=== PATIENT | female | born 1950 | race Caucasian/White ===

== ENCOUNTER 2019-10-08 11:27 | Outpatient (CLI) | payer OTHER ==
[2019-10-08 12:54] LABS: ALANINE AMINOTRANSFERASE 20 U/L (12-78); ALBUMIN 4.1 g/dL (3.4-5.0); ANION GAP 6 mmol/L (5-15); CALCIUM 8.9 mg/dL (8.5-10.1); CHLORIDE 102 mmol/L (98-107)
[2019-10-08 12:56] LABS: ALKALINE PHOSPHATASE 53 U/L (45-117); BILIRUBIN,TOTAL 0.4 mg/dL (0.2-1.0); TOTAL PROTEIN 7.4 g/dL (6.4-8.2)
[2019-10-08] MEDS ORDERED: ATOR10TA PO (13:27)
[2019-10-08] MEDS ORDERED: CITA20TA6 PO (13:27)
[2019-10-08] MEDS ORDERED: PRAS1TAB2 PO (13:27)
[2019-10-08] MEDS ORDERED: INSU100I34 SQ (13:27)
[2019-10-08] MEDS ORDERED: CINN500C2 PO (13:27)
[2019-10-08] MEDS ORDERED: TURM1POW2 PO (13:27)
[2019-10-08] MEDS ORDERED: CYAN-10 PO (13:27)
[2019-10-08] MEDS ORDERED: METF850T10 PO (13:27)
[2019-10-08] MEDS ORDERED: CHOL10003 PO (13:27)
== END 2019-10-08 23:59 | disposition home or self-care (01) ==
LOC: MERGE 11:27 → STAR 11:27
PROVIDERS: ATTEND Obstetrics & Gynecology Female Pelvic Medicine and Reconstructive Surgery
DX: Z01.818 Encounter for other preprocedural examination (principal); R10.2 Pelvic and perineal pain; N39.3 Stress incontinence (female) (male); N81.10 Cystocele, unspecified; N95.0 Postmenopausal bleeding
CPT/HCPCS: 36415; 80053; 93005

== ENCOUNTER 2019-10-12 11:24 | Day surgery (SDC) | payer OTHER ==
[~2019-10-12] VITALS: Ht 162.6 cm; Wt 51.6 kg
[~2019-10-12 11:24] MED LIST: ATOR10TA PO; BUPIVACAINE/PF-EPI 0.25% 1:200K ONE; CHOL10003 PO; CINN500C2 PO; CITA20TA6 PO; CYAN-10 PO; GENTAMICIN 80 MG/2 ML ONE; INSU100I34 SQ; METF850T10 PO; PRAS1TAB2 PO; TURM1POW2 PO; VANCOMYCIN 500 MG ONE
[2019-10-12] MEDS ORDERED: LACTATED RINGERS 1,000 ML IV SCH (11:48)
[2019-10-12] MEDS ORDERED: CHLORHEXIDINE 15 ML UDC MM ONE (12:00)
[2019-10-12] MEDS ORDERED: ACETAMINOPHEN 500 MG TABLET ONE ×2 (14:15→14:16)
[2019-10-12] MEDS ORDERED: FENTANYL PF 250 MCG/5ML ONE (14:22)
[2019-10-12] MEDS ORDERED: LABETALOL 5MG/ML, 20ML IV PRN (15:30)
[2019-10-12] MEDS ORDERED: FENTANYL PF 100 MCG/2ML IV PRN (15:30)
[2019-10-12] MEDS ORDERED: hydrALAzine 20 MG/ML, 1ML IV PRN (15:30)
[2019-10-12] MEDS ORDERED: ALBUTEROL SULFATE 2.5 MG/3 ML NPPB PRN (15:30)
[2019-10-12] MEDS ORDERED: HALOPERIDOL 5 MG/ML IV PRN (15:30)
[2019-10-12] MEDS ORDERED: OXYcodone 5 MG/5 ML ORAL.SOL UDC PO PRN (15:30)
[2019-10-12] MEDS ORDERED: HYDROmorphone 2 MG/ML, 1ML IVPush PRN (15:30)
[2019-10-12] MEDS ORDERED: PROMETHAZINE 25 MG/ML, 1ML IV PRN (15:30)
[2019-10-12] MEDS ORDERED: GLYCOPYRROLATE 0.2MG/1ML, 5ML ONE (16:14)
[2019-10-12] MEDS ORDERED: SUCCINYLCHOLINE 20 MG/ML, 10ML ONE (16:14)
[2019-10-12] MEDS ORDERED: DEXAMETHASONE 4 MG/ML, 1ML ONE (16:14)
[2019-10-12] MEDS ORDERED: ROCURONIUM 10MG/ML,5ML ONE (16:14)
[2019-10-12] MEDS ORDERED: NEOSTIGMINE 1 MG/ML, 10ML ONE (16:14)
[2019-10-12] MEDS ORDERED: SUGAMMADEX 200 MG/2 ML IVPush ONE (16:14)
[2019-10-12] MEDS ORDERED: PROPOFOL 10 MG/ML, 20ML ONE (16:14)
[2019-10-12] MEDS ORDERED: CEFAZOLIN 1,000 MG ONE (16:14)
[2019-10-12] MEDS ORDERED: ONDANSETRON 2MG/ML, 2ML ONE (16:14)
[2019-10-12] MEDS ORDERED: OXYcodone 5 MG/5 ML ORAL.SOL UDC ONE (16:47)
[2019-10-12] MEDS ORDERED: IBUPROFEN 600 MG TABLET PO PRN (18:00)
[2019-10-12] MEDS ORDERED: OXYcodone/APAP 5/325MG TABLET PO PRN (18:00)
[2019-10-12] MEDS ORDERED: KETOROLAC 30 MG/1 ML IV PRN (18:00)
[2019-10-12] MEDS ORDERED: HYDROmorphone 1 MG/ML, 1ML INJ IV PRN (18:00)
[2019-10-12] MEDS ORDERED: HYDROcodone/APAP 5/325 TABLET PO PRN (18:00)
[2019-10-12] MEDS ORDERED: ONDANSETRON 2MG/ML, 2ML IV PRN (18:00)
[2019-10-12 19:28] VITALS: BP 127/81
[2019-10-12] MEDS ORDERED: ATORVASTATIN 10 MG TABLET PO SCH (21:00)
[2019-10-13] MEDS ORDERED: metFORMIN 850 MG TABLET PO SCH (08:00)
[2019-10-13] MEDS ORDERED: CYANOCOBALAMIN 1,000 MCG TABLET PO SCH (09:00)
[2019-10-13] MEDS ORDERED: [UNRECOGNIZED DRUG - OTHER] HOMEMEDPO SCH (09:00)
[2019-10-13] MEDS ORDERED: CHOLECALCIFEROL 1,000 UNIT TABLET PO SCH (09:00)
[2019-10-13] MEDS ORDERED: TUMERIC HOMEMEDPO SCH (09:00)
[2019-10-13] MEDS ORDERED: INSULIN GLARGINE 100 UNITS/ML, PEN SQ-INSULIN SCH (09:00)
[2019-10-13] MEDS ORDERED: CINNAMON BARK HOMEMEDPO SCH (09:00)
== END 2019-10-12 20:30 | disposition home or self-care (01) ==
LOC: OUT 11:24 → 4NE 17:23 → OUT 20:30
PROVIDERS: ATTEND Obstetrics & Gynecology Female Pelvic Medicine and Reconstructive Surgery
DX: N95.0 Postmenopausal bleeding (principal); Z11.59 Encounter for screening for other viral diseases; T83.721A Exposure of implanted vaginal mesh into vagina, initial encounter; N81.4 Uterovaginal prolapse, unspecified; N39.46 Mixed incontinence; N72 Inflammatory disease of cervix uteri; N80.0 Endometriosis of uterus; N94.89 Other specified conditions associated with female genital organs and menstrual cycle; E11.9 Type 2 diabetes mellitus without complications; E78.5 Hyperlipidemia, unspecified; G43.909 Migraine, unspecified, not intractable, without status migrainosus; Z79.4 Long term (current) use of insulin; Z79.899 Other long term (current) drug therapy; Y83.8 Other surgical procedures as the cause of abnormal reaction of the patient, or of later complication, without mention of misadventure at the time of the procedure
CPT/HCPCS: 57265; 57288; 57295; 58552; 82962; 88305; C1771; J0690; J1100; J1580; J2405; J2704; J3010; J3370; J7120; U0001; G0378; J2710; J0330